=== PATIENT | female | born 1975 | race Caucasian/White ===

== ENCOUNTER 2017-04-25 19:27 | Emergency (ER) | payer MEDICARE ==
[~2017-04-25] VITALS: Ht 162.6 cm; Wt 74.8 kg
[~2017-04-25 19:27] MED LIST: CYCL10 PO; Cleocin HCl150 MG PO; DEPO SHOT; DULO60 PO; HYDR1TAB94 PO; IBUP600 PO; IBUP800 PO; LORA1 PO; MORP15ER PO; NAPR500 PO; Norco 5-325 Ta1 EACH PO; OXYACE5T PO; OXYC5 PO; SERT50 PO; TRAZ150T57 PO; VENLAFAXINE HC150 MG
[2017-04-25] MEDS ORDERED: IBUP800 PO (20:59)
== END 2017-04-25 21:35 ==
LOC: ER 19:27
DX: M25.511 Pain in right shoulder (principal); M54.2 Cervicalgia; F32.9 Major depressive disorder, single episode, unspecified; F17.210 Nicotine dependence, cigarettes, uncomplicated; W17.89XA Other fall from one level to another, initial encounter
CPT/HCPCS: 71101; 72040; 72070; 73030; 96372; 99284; J1885; L0160